=== PATIENT | male | born 1975 | race Hispanic/Latino ===

== ENCOUNTER 2019-06-19 14:58 | Outpatient (CLI) | payer OTHER ==
--- NOTE | 2019-06-19 18:51 | MRI ---
MRI OF THE RIGHT KNEE WITHOUT CONTRAST: 06/19/19 HISTORY: Rupture of ACL of the right knee. COMPARISON: None. FINDINGS: MEDIAL MENISCUS: There is an undersurface flap tear of the body and posterior horn medial meniscus extending 7 mm from the root with tissue from the medial meniscal body flipped along the superior medial gutter anterior ly. This is best seen on sagittal image 21, series 6 and axial image 13, series 4 as well as 14 and 1 5 of series 4. There is a high grade tear proximal fibers anterior cruciate ligament. Posterior cruci ate ligament is intact. Grade I injury to the MCL. The popliteus tendon has a grade II partial tear. The lateral collateral ligament is also torn proximally, approximately 1 cm from the lateral femoral epicondyle with a 2 mm gap. EXTENSOR MECHANISM: Quadriceps tendon and patellar tendon are intact. There is contusion inferior pole of the patella. CARTILAGE: Patellofemoral compartment: High grade fissuring of the medial trochlea, full thickness with evidence of cortical reactive marrow changes. Medial compartment: Multifocal 50 to 60% chondral fissuring and fraying posterior articular surface medial femoral condyl e with delamination. Lateral compartment: Intact. BONES: There is a contusion of the inferior pole of the patella. There is also subcortical contusion of the anterolateral tibial plateau. Nondisplaced fracture of the fibular head and neck. MUSCLES: Intact. SOFT TISSUES: Moderate joint effusion. No large free body is appreciated. IMPRESSION: 1. High grade displaced articular surface flap tear of the body and posterior horn medial menisc us with meniscal tissue displaced anterior superiorly in the medial gutter just above the anterior ho rn/body junction as described. Tear extends very near the root attachment. 2. High grade tear likely full thickness of the proximal fibers anterior cruciate ligament. 3. Ruptured lateral collateral ligament from the lateral femoral epicondyle 1 cm from its origin with a 2 mm gap. There is extensive interstitial type tearing of the proximal and distal ligamentous fragments. 4. Grade II partial tear of the popliteus. 5. Contusions of the inferior pole of the patella as well as of the anterior lateral tibial plat eau, posterior medial submeniscal tibial plateau, and nondisplaced fracture of the fibular head and n irwin. 6. Grade II interstitial tear of the MCL. POS: HOME
== END 2019-06-19 14:59 | disposition home or self-care (01) ==
LOC: BICMRI 14:58
PROVIDERS: ATTEND Orthopaedic Surgery
DX: S83.511A Sprain of anterior cruciate ligament of right knee, initial encounter (principal); S83.241A Other tear of medial meniscus, current injury, right knee, initial encounter; S82.491A Other fracture of shaft of right fibula, initial encounter for closed fracture

== ENCOUNTER 2019-07-10 07:36 | Outpatient (CLI) | payer OTHER ==
[2019-07-10 16:51] LABS: #Eosinphils 0.1 thou/uL (0.0-0.7); #Lymphocytes 1.5 thou/uL (1.20-3.40); #Monocytes 0.4 thou/uL (0.11-0.59); #Neutrophils 4.4 thou/uL (1.40-6.50); %Basophils 0.6 % (0.0-1.0); %Eosinophils 1.1 % (0.0-10.0); %Lymphocytes 23.4 % (21.0-51.0); %Monocytes 6.3 % (0.0-10.0); %Neutrophils 68.7 % (42.0-75.0); Hemoglobin 12.8 g/dL (14.0-18.0); Mean Corpuscular HGB CONC 31.2 g/dL (32.0-36.0); Mean Corpuscular Hemoglobin 27.7 pg (27.0-31.0); Mean Corpuscular Volume 88.6 fL (78.0-98.0); Mean Platelet Volume 10.4 fL (7.4-10.4); Platelet Count 192 thou/uL (130-400); RBC Distribution Width 16.5 % (11.5-14.5); Red Blood Cell (RBC) Count 4.63 mill/uL (4.70-6.10); White Blood Cell (WBC) Count 6.4 thou/uL (4.8-10.8)
[2019-07-10 17:08] LABS: Anion Gap 12 mmol/L (10-20); BUN (Urea Nitrogen) 26 mg/dL (8.9-20.6); Calc. Creatinine Clearance 0 mL/min (70-130); Calcium 9.2 mg/dL (7.8-10.44); Carbon Dioxide 23 mmol/L (22-29); Chloride 110 mmol/L (98-107); Estimated GFR-MDRD Greater than 90; Glucose 68 mg/dL (70-105); Sodium 141 mmol/L (136-145)
[2019-07-11 11:05] LABS: SARS-CoV-2 MS2 Positive; SARS-CoV-2 N Gene Negative; SARS-CoV-2 S Gene Negative; SARS-CoV-2 orf1ab Negative
== END 2019-07-10 07:37 | disposition home or self-care (01) ==
LOC: LABBT 07:36
PROVIDERS: ATTEND Orthopaedic Surgery
DX: Z01.818 Encounter for other preprocedural examination (principal); Z11.59 Encounter for screening for other viral diseases
CPT/HCPCS: 80048; 85025; 87635; 93005; 93010; U0003

== ENCOUNTER 2019-07-12 05:37 | Observation (INO) | payer OTHER ==
[2019-07-10 15:41] VITALS: BMI 27.1
[2019-07-12] MEDS ORDERED: Midazolam HCl 2 mg/2 ml Vial ONE ×2 (06:23→06:41)
[2019-07-12] MEDS ORDERED: Fentanyl 100 MCG/2 ML VIAL ONE ×7 (06:23→12:56)
[2019-07-12] MEDS ORDERED: Vancomycin 1.5 GRAM/300 ML BAG ONE (07:12)
[2019-07-12] MEDS ORDERED: Morphine 2 MG/ML SYRINGE SLOW IVP PRN (07:25)
[2019-07-12] MEDS ORDERED: Milk Of Magnesia 30 ML UDCUP PO PRN (07:25)
[2019-07-12] MEDS ORDERED: Morphine 4 MG/ML VIAL SLOW IVP PRN (07:25)
[2019-07-12] MEDS ORDERED: HYDROcodone/Acetaminophen 7.5/325 mg Tablet PO PRN ×2 (07:25)
[2019-07-12] MEDS ORDERED: traMADol HCl 50 MG TAB PO PRN ×2 (07:25→07:51)
[2019-07-12] MEDS ORDERED: Ondansetron PF 4 MG/2 ML Vial IVP PRN ×2 (07:25→07:51)
[2019-07-12] MEDS ORDERED: Methocarbamol 500 MG TAB PO PRN (07:25)
[2019-07-12] MEDS ORDERED: Bisacodyl 10 MG SUPP PR PRN (07:25)
[2019-07-12] MEDS ORDERED: diphenhydrAMINE 50 MG CAP PO PRN (07:25)
[2019-07-12] MEDS ORDERED: Acetaminophen 500 MG TAB PO PRN (07:25)
[2019-07-12] MEDS ORDERED: Sodium Chloride 0.9% 1,000 ML IV SCH (07:30)
[2019-07-12] MEDS ORDERED: Promethazine HCl 25 MG/ML VIAL IM PRN (07:51)
[2019-07-12] MEDS ORDERED: HYDROcodone/Acetaminophen 10/325 mg Tablet PO PRN (07:51)
[2019-07-12] MEDS ORDERED: Ropivacaine 0.2% 550 ML 550 ML NERVE BLCK SCH (07:51)
[2019-07-12] MEDS ORDERED: Zolpidem Tartrate 5 MG TAB PO PRN (07:51)
[2019-07-12] MEDS ORDERED: Fentanyl 100 MCG/2 ML VIAL SLOW IVP PRN (07:52)
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
[2019-07-12] MEDS ORDERED: Morphine 4 MG/ML VIAL ONE (11:12)
[2019-07-12] MEDS ORDERED: HYDROmorphone 2 MG/ML VIAL ONE (11:29)
[2019-07-12] MEDS ORDERED: Ketorolac Tromethamine 30 MG/ML VIAL IVP SCH (12:00)
[2019-07-12] MEDS ORDERED: Ondansetron PF 4 MG/2 ML Vial ONE (13:36)
[2019-07-12] MEDS ORDERED: PROPOFOL 200 MG/20 ML VIAL ONE (13:36)
[2019-07-12] MEDS ORDERED: Dexamethasone 20 MG/5 ML VIAL ONE (13:36)
[2019-07-12] MEDS ORDERED: Bupivacaine HCl 0.5%/Epinephrine 1:200,000/PF 30 ml Vial ONE (13:36)
[2019-07-12] MEDS ORDERED: Ropivacaine 0.5% HCl/PF (150 MG/30 ML VIAL) ONE (13:37)
[2019-07-12] MEDS: HYDROcodone/Acetaminophen 10/325 mg Tablet PO PRN ×3 (13:51→21:29)
[2019-07-12] MEDS: Ketorolac Tromethamine 30 MG/ML VIAL IVP SCH ×2 (13:52→18:09)
[2019-07-12] MEDS: CEFAZOLIN 2 GM in Premix Bag 1 BAG IVPB SCH ×2 (13:53→21:26)
[2019-07-12] MEDS: Famotidine 20 MG TAB PO SCH ×2 (13:54→21:26)
[2019-07-12] MEDS: Vancomycin 1.5 GRAM/300 ML BAG 1.5 GM in Premix Bag 1 BAG IVPB SCH (18:10)
[2019-07-13] MEDS: Ketorolac Tromethamine 30 MG/ML VIAL IVP SCH ×3 (00:02→12:31)
[2019-07-13] MEDS: traMADol HCl 50 MG TAB PO PRN ×3 (00:05→14:55)
[2019-07-13] MEDS: HYDROcodone/Acetaminophen 10/325 mg Tablet PO PRN ×3 (03:37→12:31)
[2019-07-13] MEDS: Vancomycin 1.5 GRAM/300 ML BAG 1.5 GM in Premix Bag 1 BAG IVPB SCH (06:37)
[2019-07-13] MEDS: Famotidine 20 MG TAB PO SCH (08:09)
[2019-07-13 11:39] VITALS: BP 158/79; TEMP 97.9
== END 2019-07-13 16:12 | disposition home or self-care (01) ==
LOC: SDC 05:37 → SJJU 07:30
PROVIDERS: ADMIT Orthopaedic Surgery; ATTEND Orthopaedic Surgery
PROC: 0MRN47Z Replacement of Right Knee Bursa and Ligament with Autologous Tissue Substitute, Percutaneous Endoscopic Approach (ICD-10-PCS; principal; 2019-07-12)
PROC: 0SBC4ZZ Excision of Right Knee Joint, Percutaneous Endoscopic Approach (ICD-10-PCS; 2019-07-12)
PROC: 0YQF0ZZ Repair Right Knee Region, Open Approach (ICD-10-PCS; 2019-07-12)
PROC: 0LMQ0ZZ Reattachment of Right Knee Tendon, Open Approach (ICD-10-PCS; 2019-07-12)
PROC: 3E0T3BZ Introduction of Anesthetic Agent into Peripheral Nerves and Plexi, Percutaneous Approach (ICD-10-PCS; 2019-07-12)
DX: S83.511A Sprain of anterior cruciate ligament of right knee, initial encounter (principal); S83.421A Sprain of lateral collateral ligament of right knee, initial encounter; S86.111A Strain of other muscle(s) and tendon(s) of posterior muscle group at lower leg level, right leg, initial encounter; S83.241A Other tear of medial meniscus, current injury, right knee, initial encounter; G89.18 Other acute postprocedural pain; F32.9 Major depressive disorder, single episode, unspecified; F41.9 Anxiety disorder, unspecified; Z79.899 Other long term (current) drug therapy; Z98.84 Bariatric surgery status; X58.XXXA Exposure to other specified factors, initial encounter
CPT/HCPCS: 96365; 96366; 96367; 96375; 96376; A4306; C1713; G0378; J0670; J0690; J1100; J1170; J1885; J2250; J2270; J2405; J2704; J2795; J3010; J3370; Q0163